=== PATIENT | male | born 1960 | race Caucasian/White ===

== ENCOUNTER 2018-02-14 18:47 | Emergency (ER) | payer OTHER ==
[~2018-02-14] VITALS: Ht 165.1 cm; Wt 68.0 kg
[2018-02-14 19:16] LABS: ABSOLUTE BASOPHILS 0.1 thou/uL (0.0-0.2); ABSOLUTE EOSINOPHILS 0.1 thou/uL (0.0-0.7); ABSOLUTE LYMPHOCYTES 1.7 thou/uL (0.8-5.3); ABSOLUTE MONOCYTES 1.1 thou/uL (0.0-1.2); ABSOLUTE NEUTROPHILS 10.3 thou/uL (1.6-8.1); BASOPHILS 0.4 %; EOSINOPHILS 0.9 %; HEMATOCRIT 44.3 % (42.0-52.0); HEMOGLOBIN 15.6 gm/dL (14.0-18.0); LYMPHOCYTES 12.5 %; MCH 31.9 pg (26.0-34.0); MCHC 35.2 g/dL (28.0-37.0); MCV 90.6 fL (80.0-100.0); MONOCYTES 8.3 %; MPV 7.5 fl. (7.2-11.1); NUCLEATED RBCS 0 /100WBC; PLATELET COUNT* 267 thou/uL (150-400); POLYS 77.9 %; RBC 4.89 mil/uL (4.50-6.00); RDW-CV 12.6 % (10.5-14.5); WBC 13.2 thou/uL (4.0-11.0)
[2018-02-14 19:31] LABS: CALCIUM 10.1 mg/dL (8.5-10.1); CREATININE 1.5 mg/dL (0.6-1.3); POTASSIUM 4.3 mmol/L (3.5-5.1)
[2018-02-14 19:34] LABS: TROPONIN-I LEVEL <0.06 ng/mL (<0.06)
[2018-02-14 19:35] LABS: ALBUMIN 4.2 g/dL (3.4-5.0); TOTAL BILIRUBIN 0.7 mg/dL (<0.1-1.0); TOTAL PROTEIN 7.5 g/dL (6.4-8.2)
[2018-02-14 21:05] VITALS: BP 111/69
--- NOTE | 2018-02-15 11:32 | EKG ---
[place] [address] ELECTROCARDIOGRAM REPORT Name: NARAYAN MONTOYA Room: [facility]#: [id number] Admission: 02/14/18 Attend Phys: Discharge: 02/14/18 Date of : 56 Report #: [id number] THIS REPORT FOR: //name// [facility] ED Test Date: 2018-02-14 Test Time: 18:53:28 Pat Name: NARAYAN MONTOYA Department: Room: Gender: M [employer]: : 1960 Requested By: Sharif Mckeon Order Number: [id number] MD: Toby Pierce Measurements Intervals [place] Rate: 97 P: 59 W[place]: 149 QRS: 54 QRSD: 91 T: 34 QT: 371 QTc: 472 Interpretive Statements Sinus rhythm No previous ECG available for comparison Electronically Signed On 02-15-2018 11:32:00 CDT by Toby Pierce [email or web address] <ELECTRONICALLY SIGNED> By: Toby Pierce MD, [facility] 02/15/18 1132 1853 1853 Toby Pierce MD, FACC /EPI
== END 2018-02-14 21:07 | disposition home or self-care (01) ==
LOC: M.ERS 18:47
PROVIDERS: Emergency Medicine; Emergency Medicine Emergency Medical Services
DX: T67.5XXA Heat exhaustion, unspecified, initial encounter (principal); Z87.891 Personal history of nicotine dependence; X30.XXXA Exposure to excessive natural heat, initial encounter; Y93.89 Activity, other specified; Y92.89 Other specified places as the place of occurrence of the external cause; Y99.8 Other external cause status